=== PATIENT | female | born 1995 | race Caucasian/White ===

== ENCOUNTER → 2017-01-31 | Day surgery (SDC) | payer OTHER ==
[2017-01-30 14:33] LABS: BASOPHIL 0.5 % (0-2); HCT 46.4 % (37.0-47.0); HGB 16.3 g/dl (12.5-16.0); LYMPHOCYTE 27.3 % (15-48); MCH 29.5 pg (25.0-31.0); MCHC 35.1 g/dL (32.0-36.0); MCV 83.9 fL (78.0-100.0); MONOCYTE 7.5 % (0-12); MPV 10.1 fL (6.0-9.5); NEUTROPHIL 63.7 % (41-80); PLT 284 K/uL (150-400); RBC 5.53 M/uL (4.20-5.40); RDW 12.9 % (11.5-14.0); WBC 6.1 K/uL (4.0-10.5)
== END | disposition home or self-care (01) ==
LOC: FAS 08:51
PROVIDERS: Oral & Maxillofacial Surgery
DX: K01.1 Impacted teeth (principal); G40.909 Epilepsy, unspecified, not intractable, without status epilepticus; F41.9 Anxiety disorder, unspecified; F32.9 Major depressive disorder, single episode, unspecified; Z88.8 Allergy status to other drugs, medicaments and biological substances; Z79.899 Other long term (current) drug therapy
CPT/HCPCS: 36415; 84703; 85025; J1100; J1170; J1885; J2405; J2704; J3010